=== PATIENT | female | born 1950 | race African-American/Black ===

== ENCOUNTER 2022-06-10 23:37 | Emergency (ER) | payer MEDICARE, OTHER ==
[~2022-06-10] VITALS: Ht 167.6 cm; Wt 67.6 kg
--- NOTE | 2022-06-11 | NUR ---
VIVIAN ABAD AT BEDSIDE FOR MSE
[2022-06-11] MEDS ORDERED: AMLO10TA59 PO (00:02)
[2022-06-11] MEDS ORDERED: ACETAMINOPHEN ES 500 MG TABLET ONE (00:15)
[2022-06-11] MEDS ORDERED: AMLODIPINE 5 MG TABLET PO ONE (00:15)
[2022-06-11] MEDS ORDERED: CLONIDINE HCL 0.1 MG TABLET PO ONE ×2 (00:15→01:30)
[2022-06-11] MEDS ORDERED: CLONIDINE HCL 0.1 MG TABLET ONE ×2 (00:15→01:16)
[2022-06-11] MEDS ORDERED: ACETAMINOPHEN ES 500 MG TABLET PO ONE (00:15)
[2022-06-11] MEDS ORDERED: AMLODIPINE 5 MG TABLET ONE (00:15)
--- NOTE | 2022-06-11 00:21 | NUR ---
PT MEDICATED FOR HTN PER MD ORDER. PT REFUSED THE TYLENOL ORDER; EKG DONE
[2022-06-11] MEDS ORDERED: LOPE-195 PO (00:27)
[2022-06-11] MEDS ORDERED: CLON0.1T PO (00:27)
[2022-06-11 01:09] LABS: *BILIRUBIN,URIN NEGATIVE (NEGATIVE); *CLARITY,URINE CLEAR (CLEAR); *COLOR,URINE YELLOW (YELLOW); *KETONES,URINE NEGATIVE (NEGATIVE); *UROBILINOGEN,URINE 0.2 E.U./dl (NORMAL); LEUKOCYTE ESTERASE ,URINE TRACE (NEGATIVE); NITRITE, URINE NEGATIVE (NEGATIVE); UGLUCOSE NEGATIVE (NEGATIVE)
[2022-06-11 01:19] LABS: *BLOOD, URINE TRACE (NEGATIVE); BACTERIA,URINE NONE SEEN /HPF (NONE SEEN); SQUAMOUS EPITHELIAL CELL,UR FEW /HPF (NONE SEEN)
--- NOTE | 2022-06-11 01:22 | NUR ---
PT'S BP REMAINS HIGH 183/99; GIVEN ANOTHER DOSE OF CATAPRES PER MD ORDER. WILL FOLLOW UP IN 30 MIN. ON ANOTHER BP READING
--- NOTE | 2022-06-11 01:50 | NUR ---
Patient discharged to home in stable condition. Written and verbal after care instructions given. Patient verbalizes understanding of instructions. Stressed follow up or return to ER for worsening s/s.
[2022-06-11 01:55] VITALS: BP 164/95
== END 2022-06-11 01:55 | disposition home or self-care (01) ==
LOC: ER 06-11 00:26
DX: R19.7 Diarrhea, unspecified (principal); I10 Essential (primary) hypertension; R94.31 Abnormal electrocardiogram [ECG] [EKG]
CPT/HCPCS: 93005; A9150